=== PATIENT | female | born 1990 | race Hispanic/Latino ===

== ENCOUNTER 2020-02-03 17:18 | Emergency (ER) | payer SELFPAY ==
[2020-02-03] MEDS ORDERED: ACETAMINOPHEN EXTRA STRENGTH 500 MG TABLET ONE (17:36)
== END 2020-02-03 19:20 | disposition home or self-care (01) ==
LOC: EDH 17:18
DX: J02.8 Acute pharyngitis due to other specified organisms (principal); B97.89 Other viral agents as the cause of diseases classified elsewhere
CPT/HCPCS: 87880

== ENCOUNTER 2025-01-21 11:05 | Emergency (ER) | payer SELFPAY ==
[~2025-01-21] VITALS: Ht 149.9 cm; Wt 117.9 kg
--- NOTE | 2025-01-21 11:56 | HMCIMG ---
LEFT ANKLE RADIOGRAPHS - 3 VIEWS INDICATION: Pain COMPARISON: None FINDINGS: AP, lateral, and oblique views. Mild to moderate dorsal lateral left ankle soft tissue swelling. No fracture or dislocation identified. The talar dome is intact. Ankle mortise and tibial plafond are well maintained. No significant joint effusion is present. Subcentimeter plantar calcaneal spur. IMPRESSION: No evidence for fracture or dislocation.
--- NOTE | 2025-01-21 12:05 | ERN ---
General Stated Complaint: LEFT ANKLE SWOLLEN FROM FALL Time Seen by MD: 11:05 Time Seen by Midlevel: 11:05 Source: patient History of Present Illness Initial Comments Patient Is a 34-year-old female presenting to the emergency department for evaluation of left ankle pain. The patient states she was stepping down when she accidentally rolled her left ankle. Denies any other injury. ROS Dictation CONSTITUTIONAL: Negative except for HPI HEAD/FACE: Negative except for HPI EENT: Negative except for HPI RESPIRATORY: Negative except for HPI GASTROINTESTINAL/ABDOMINAL: Negative except for HPI GENITOURINARY: Negative except for HPI MUSCULOSKELETAL: Negative except for HPI INTEGUMENTARY: Negative except for HPI NEUROLOGICAL/PSYCH: Negative except for HPI HEMATOLOGIC/LYMPHATIC: Negative except for HPI All Systems Negative, Except as noted above. 13 point review of systems assessed and all negative except for above. Physical Exam Physical Exam Dictation Vital Signs reviewed General Appearance: Alert, oriented x 3, no acute distress, well developed, nourished. Head and Face: non-traumatic. Eyes: PERRL, pink conjunctivas, eyelid no trauma, anterior chamber with arcus senilis. Ears: Pinnas intact and no signs of trauma or erythema ear canals clear and no discharge TM no erythema Nose: No discharge, no bleeding. Oropharynx: Mouth normal, tongue pink, pharynx clear,no erythema, tonsils no exudates, no abscesses noted, mucous membrane moist Neck: Supple, non-tender, no thyromegaly, no masses, no JVD, no bruits Breast:Deferred Chest:No tenderness, no crepitus, no paradoxical movement, no retractions Lungs:Clear, well-ventilated, symmetric, no rales, no wheezing, no rhonchi, no stridor, good breath sounds bilaterally Heart: Regular rate, regular rhythm, no murmur, no gallops Vascular: no peripheral edema, Abdomen: Soft, positive bowel sounds, nondistended, no guarding, nontender, no rebound, no masses no hepatomegaly, no splenomegaly, no Angelo's sign, no hernias. Rectal: Deferred Genital: Deferred Neurological: Normal speech, motor function intact, sensory function intact Musculoskeletal: Neck nontender, full range of motion, back nontender, full range of motion, Extremities: Tenderness over the left lateral malleolus, sensation intact, normal capillary refill, 2+ DP, PT pulses Skin: Color pink, dry, no turgor, no rash, no lacerations, no abrasions, no contusions. Lymphatic: Deferred MDM MDM: 34-year-old female presenting to the ER with left ankle pain after she rolled her ankle. Denies any other injury. On exam she was some tenderness over the left lateral malleolus but the remainder of her physical examination is unremarkable. X-ray of her left ankle does not show any acute fracture or dislocation. He ankle was Yair wrapped and the patient will need to follow up outpatient for further evaluation. Return precautions discussed Differential diagnosis: Fracture, dislocation, sprain There are no social concerns with this patient. Prescription drug management Prescriptions will include: None Medical management and examination interpretation discussions were had by me with other qualified healthcare professionals as indicated for the patient's care. ED Course Orders Procedure Category Date Status Time Ankle Comp 3vws Lt RAD 01/21/25 Resulted 11:[address] [address] IMAGING REPORT Signed PATIENT: INES WOOD MR#: [id number] : 1990 SEX: F AGE: 34 LOCATION: [facility] ORDER [id number] STATUS: [facility] ER REPORT#: [id number] SERVICE 1113 REASON: fall ORDERING PHYSICIAN: DEREK SOSA PROCEDURE: [id number] - ANKLE COMP 3VWS LT LEFT ANKLE RADIOGRAPHS - 3 VIEWS INDICATION: Pain COMPARISON: None FINDINGS: AP, lateral, and oblique views. Mild to moderate dorsal lateral left ankle soft tissue swelling. No fracture or dislocation identified. The talar dome is intact. Ankle mortise and tibial plafond are well maintained. No significant joint effusion is present. Subcentimeter plantar calcaneal spur. IMPRESSION: No evidence for fracture or dislocation. DICTATED BY: JOHNNIE MELVIN MD DATE: 01/21/25 1154 ELECTRONICALLY SIGNED BY: JOHNNIE MELVIN MD DATE: 01/21/25 1156 DX & DISP Disposition: Discharge Departure Impression: Primary Impression: Left ankle sprain Condition: Stable Additional Instructions: Your left ankle x-ray does not show any evidence of an acute fracture or dislocation. You may take Tylenol and Motrin as needed for pain. Follow up with your primary care doctor in 2-3 days for repeat evaluation. Return to the ER for any new or worsening symptoms Referrals: SELF,REFERRAL (PCP) Time of Disposition: 12:04 I have reviewed the case, and I agree with, Diagnosis and Plan I performed the substantive portion of the visit. I have reviewed and personally made and approve the management plan that is documented in the note by myself or the CRISTINA. I acknowledge for responsibility for the patient's management plan. DEREK SOSA Jan 21, 2025 12:05
--- NOTE | 2025-01-21 12:58 | NUR ---
PT USING ASSISTED DEVICE DUE TO POST FALL LEFT ANKLE PAIN
[2025-01-21 13:07] VITALS: BP 160/69; PULSE 65; RESP 18; TEMP 98.7; O2SAT 99
== END 2025-01-21 13:15 | disposition home or self-care (01) ==
LOC: EDH 11:05
DX: S93.492A Sprain of other ligament of left ankle, initial encounter (principal); W18.39XA Other fall on same level, initial encounter; Y93.01 Activity, walking, marching and hiking; Y92.89 Other specified places as the place of occurrence of the external cause; Y99.8 Other external cause status
CPT/HCPCS: 73610; 99283